=== PATIENT | female | born 1950 | race Caucasian/White ===

== ENCOUNTER 2018-08-03 22:26 | Emergency (ER) | payer OTHER ==
[~2018-08-03] VITALS: Ht 152.4 cm; Wt 68.0 kg
[2018-08-03 22:34] VITALS: BP_SYST 180
[2018-08-03 23:09] VITALS: BP_SYST 177
== END 2018-08-03 23:09 | disposition home or self-care (01) ==
LOC: SED 22:26
DX: H43.392 Other vitreous opacities, left eye (principal); E11.9 Type 2 diabetes mellitus without complications; I10 Essential (primary) hypertension
CPT/HCPCS: 99282